=== PATIENT | female | born 1970 | race Caucasian/White ===

== ENCOUNTER 2016-03-06 06:39 | Emergency (ER) | payer OTHER ==
[~2016-03-06] VITALS: Ht 165.1 cm; Wt 113.4 kg
[2016-03-06] MEDS ORDERED: IV NORMAL SALINE 1000ML BAG 1,000 ML IV SCH (07:01)
[2016-03-06] MEDS ORDERED: KETOROLAC TROMETHAMINE 30 MG/ML SYRINGE. IV ONE (07:15)
[2016-03-06 07:20] LABS: BASO # 0.1 x10^3/uL (0.0-0.2); BASO % 1 % (0-3); EOS % 3 % (0-3); HEMATOCRIT 46.1 % (36.0-47.0); HEMOGLOBIN 14.6 g/dL (12.0-15.5); LYMPH # 3.6 x10^3/uL (1.0-4.8); LYMPH % 32 % (24-48); MEAN CORPUSCULAR HEMOGLOBIN 27 pg (25-35); MEAN CORPUSCULAR HGB CONC 32 g/dL (31-37); MEAN CORPUSCULAR VOLUME 86 fL (79-100); MONO % 7 % (0-9); NEUT % 57 % (31-73); PLATELET COUNT 335 x10^3/uL (140-400); RED BLOOD COUNT 5.37 x10^6/uL (3.50-5.40); RED CELL DISTRIBUTION WIDTH 14.3 % (11.5-14.5); WHITE BLOOD COUNT 11.1 x10^3/uL (4.0-11.0)
[2016-03-06 07:28] LABS: CREATININE 0.9 mg/dL (0.6-1.0); GFR 67.1
[2016-03-06 07:34] LABS: ALBUMIN 3.8 g/dL (3.4-5.0); TOTAL BILIRUBIN 0.3 mg/dL (0.2-1.0); TOTAL PROTEIN 7.8 g/dL (6.4-8.2)
--- NOTE | 2016-03-06 07:40 | PDOC ---
OBSERVATION CRITERIA FORMS Observation Criteria Form: GENERAL CRITERIA: OBSERVATION CARE USE THIS FORM ONLY WHEN INPATIENT ADMISSION CRITERIA ARE NOT MET. (Place X for any and all applicable criteria): Placement for observation care may be appropriate for a patient with ALL of the following(1)(2)(3))(4): []I. Observation care is appropriate as indicated by care requirements that are ALL of the following: []a) Beyond the scope of a usual outpatient care episode [A] []b) Expected to be short term [B] []c) Appropriate for observation care as indicated by ANY ONE of the following: []i) Diagnostic evaluation needed (eg, rule out MA) []ii) Acute treatment and response evaluation needed (eg, drug reaction) []iii) Monitoring for event (eg, arrhythmia) or recovery (eg, from drug ingestion) [X]II. Observation care is needed for ANY ONE of the following: []a) Significant adverse reaction to treatment or procedure []b) Abnormal finding (eg from lab. test, imaging study, physical exam) prompting significant concern(5)(6))(7) []c) Cardiovascular abnormalities (eg, hypertensive urgency, monitoring for cardiac injury)(7)(8)(9)(10))(11)(12) [X]d) Respiratory abnormalities (eg, dyspnea, bronchospasm, suspected aspiration)(11)(12)(15)(16) []e) Infectious processes (eg, hepatitis, observation for antibiotic response)(6)(17)(15)( 18)(19)(20) []f) Neurologic abnormalities (eg, unexplained abnormal mental status, multiple sclerosis exacerbation)(21) []g) Gastroenterologic problems (eg, pancreatitis; evaluation for suspected : ileus, obstruction, or appendicitis) []h) Obstetric issues (eg, active spontaneous ; suspected: ectopic , active labor, or significant antepartum complication) []i) Head and neck disease (eg, acute glaucoma, severe labyrinthitis) []j) Electrolyte or metabolic derangements (eg, sodium greater than 150 mEq /L (mmol/L)(18)(24) []k) Injuries (eg, snake bite, vehicular trauma(25)(26)(27)(28) []l) Control of severe vomiting or temperature abnormalities needed(29)(30) (31) []m) Severe pain requiring acute management []n) Behavioral health issues requiring further evaluation and disposition arrangement, including a patient who is ANY ONE of the following (34)(35)( 36)(37) []i) A danger to self (eg, self-mutilating or suicidal behavior) []ii) A danger to others (eg, assaultive or homicidal behavior) []iii) Incapacitated because of grave disability (eg, severe regression with inability to provide for self) []iv) Experiencing withdrawal or other drug-induced disorder []o) Monitoring or clinical intervention, including ANY ONE of the following [A] (11)(17): []i) Repetitive vital signs, neurologic signs, or vascular checks(6) (7)(8)(14)(15)(16)(30)(21)(23)(31)(38) []ii) Cardiac or respiratory monitoring(8)(9)(10)(13)(14)(15)(16) []iii) monitoring []iv) IV fluid replacement []v) IV medication or electrolyte infusions []vi) Respiratory therapy []vii) Rapid diagnostic testing (eg, observation pending laboratory or other testing results)(6)(9)(10)(23)(30)(31) []viii) Oxygen supplementation []ix) Other care requirements that exceed usual outpatient care []p) A child whose situation includes ANY ONE of the following (5)(6)(14)(15) (40)(41)(42)(31)(39)(43): []i) Clinical response to outpatient therapy uncertain []ii) Outpatient supervision by parents or caregivers uncertain []q) Monitoring needed after treatment []r) Temperature abnormalities requiring further evaluation []s) Poisoning The original [facility] content created by [employer] has been revised. The portions of the content which have been revised are identified through the use of italic text, and [facility] [employer] has neither reviewed nor approved the modified material. All other unmodified content is copyright [facility]. Please see references footnoted in the original [facility] edition 2016 [facility] completed for patient?: Yes LIBBY GOODMAN Mar 06, 2016 07:40
--- NOTE | 2016-03-06 07:56 | PHYS DOC ---
Past Medical History Past Medical History: Asthma Past Surgical History: Cholecystectomy Additional Past Surgical Histo: right breast lumpectomy Alcohol Use: None Drug Use: None Adult General Chief Complaint Chief Complaint: SHORTNESS OF BREATH [facility] HPI Patient is a 46 year old female who presents with complaint of cough and shortness of breath. Patient states her symptoms started suddenly this morning. Patient states that she awoke this morning with throat tightness and states that she lost her voice. Patient denies any fevers. Patient has history of asthma and Pelon's disease. The patient states that she used 3 treatments from her albuterol inhaler with improvement in her respiratory symptoms. Patient denies any chest pain, abdominal pain, or nausea. Patient has not had any recorded fevers at home. The patient states that she is still having slight shortness of breath and came to the emergency department for evaluation. Review of Systems Review of Systems Constitutional: Denies fever or chills [] Eyes: Denies change in visual acuity, redness, or eye pain [] HENT: Throat tightness, voice changes [] Respiratory: Cough, shortness of breath [] Cardiovascular: No additional information not addressed in HPI [] GI: Denies abdominal pain, nausea, vomiting, bloody stools or diarrhea [] : Denies dysuria or hematuria [] Musculoskeletal: Denies back pain or joint pain [] Integument: Denies rash or skin lesions [] Neurologic: Denies headache, focal weakness or sensory changes [] Endocrine: Denies polyuria or polydipsia [] Current Medications Current Medications Current Medications Medications (Trade) Dose Ordered Sig/Valentina Start Time Stop Time Status Last Admin Dose Admin Info (Do NOT chart on this entry -- for MONITORING) 1 each PRN DAILY PRN 03/06/16 08:45 03/08/16 08:44 Iohexol (Omnipaque 300 Mg/ml) 70 ml 1X ONCE 03/06/16 08:45 03/06/16 08:46 DC 03/06/16 08:46 70 ML Ketorolac Tromethamine (Toradol) 15 mg 1X ONCE 03/06/16 07:15 03/06/16 07:16 DC 03/06/16 08:12 15 MG Sodium Chloride (Iv Sodium Chloride 0.9% 1000ml Bag) 1,000 ml @ 1,000 mls/hr Q1H 03/06/16 07:01 03/06/16 08:00 DC 03/06/16 07:27 1,000 MLS/HR Allergies Allergies Allergies Coded Allergies Type Severity Reaction Last Updated Verified amoxicillin Allergy Intermediate 03/06/16 Yes cortisone Allergy Intermediate 03/06/16 Yes Physical Exam Physical Exam Constitutional: Alert, afebrile, appears in mild respiratory distress. [] HENT: Normocephalic, atraumatic, bilateral external ears normal, oropharynx moist, no oral exudates, nose normal. [] Eyes: PERRLA, EOMI, conjunctiva normal, no discharge. [] Neck: Normal range of motion, no tenderness, supple, no stridor. [] Cardiovascular: Tachycardia, normal rhythm, no murmur [] Lungs & Thorax: Bilateral breath sounds clear to auscultation [] Abdomen: Bowel sounds normal, soft, no tenderness, no masses, no pulsatile masses. [] Skin: Warm, dry, no erythema, no rash. [] Back: No tenderness, no CVA tenderness. [] Extremities: No tenderness, no cyanosis, no clubbing, ROM intact, no edema. [] Neurologic: Alert and oriented X 3, normal motor function, normal sensory function, no focal deficits noted. [] Current Patient Data Vital Signs Vital Signs Date Time Temp Pulse Resp B/P Pulse Ox O2 Delivery O2 Flow Rate FiO2 03/06/16 08:00 98 20 132/76 98 03/06/16 06:40 98.1 Room Air 98.1 Lab Values Laboratory Tests Test 03/06/16 06:54 03/06/16 07:25 03/06/16 08:09 White Blood Count 11.1x10^3/uL (4.0-11.0) H Red Blood Count 5.37x10^6/uL (3.50-5.40) Hemoglobin 14.6g/dL (12.0-15.5) Hematocrit 46.1% (36.0-47.0) Mean Corpuscular Volume 86fL (79-100) Mean Corpuscular Hemoglobin 27pg (25-35) Mean Corpuscular Hemoglobin Concent 32g/dL (31-37) Red Cell Distribution Width 14.3% (11.5-14.5) Platelet Count 335x10^3/uL (140-400) Neutrophils (%) (Auto) 57% (31-73) Lymphocytes (%) (Auto) 32% (24-48) Monocytes (%) (Auto) 7% (0-9) Eosinophils (%) (Auto) 3% (0-3) Basophils (%) (Auto) 1% (0-3) Neutrophils # (Auto) 6.3x10^3uL (1.8-7.7) Lymphocytes # (Auto) 3.6x10^3/uL (1.0-4.8) Monocytes # (Auto) 0.8x10^3/uL (0.0-1.1) Eosinophils # (Auto) 0.3x10^3/uL (0.0-0.7) Basophils # (Auto) 0.1x10^3/uL (0.0-0.2) Sodium Level 140mmol/L (136-145) Potassium Level 4.0mmol/L (3.5-5.1) Chloride Level 104mmol/L (98-107) Carbon Dioxide Level 24mmol/L (21-32) Anion Gap 12 (6-14) Blood Urea Nitrogen 22mg/dL (7-20) H Creatinine 0.9mg/dL (0.6-1.0) Estimated GFR (Cockcroft-Gault) 67.1 BUN/Creatinine Ratio 24 (6-20) H Glucose Level 117mg/dL (70-99) H Calcium Level 9.0mg/dL (8.5-10.1) Total Bilirubin 0.3mg/dL (0.2-1.0) Aspartate Amino Transferase (AST) 15U/L (15-37) Alanine Aminotransferase (ALT) 15U/L (14-59) Alkaline Phosphatase 107U/L (46-116) Total Protein 7.8g/dL (6.4-8.2) Albumin 3.8g/dL (3.4-5.0) Albumin/Globulin Ratio 1.0 (1.0-1.7) Influenza Type A Antigen Negative (NEGATIVE) Influenza Type B Antigen Negative (NEGATIVE) Urine Collection Type Unknown Urine Color Yellow Urine Clarity Clear Urine pH 5.5 Urine Specific Harriet 1.025 Urine Protein Negativemg/dL (NEG-TRACE) Urine Glucose (UA) Negativemg/dL (NEG) Urine Ketones (Stick) Negativemg/dL (NEG) Urine Blood Negative (NEG) Urine Nitrite Negative (NEG) Urine Bilirubin Negative (NEG) Urine Urobilinogen Dipstick 0.2mg/dL (0.2 mg/dL) Urine Leukocyte Esterase Small (NEG) Urine RBC Occ/HPF (0-2) Urine WBC 5-10/HPF (0-4) Urine Squamous Epithelial Cells Many/LPF Urine Bacteria Many/HPF (0-FEW) Urine Mucus Marked/LPF Urine Test Negative (NEG) Laboratory Tests 03/06/16 06:54 Laboratory Tests 03/06/16 06:54 EKG EKG Interpreted by me: Heart rate 103, sinus tachycardia, normal intervals, normal axis, no acute ST/T-wave abnormalities present Radiology/Procedures Radiology/Procedures [address] [id number] IMAGING REPORT Signed PATIENT: SAMMIE HERNANDEZ ACCOUNT: [id number] : 1970 LOCATION: ER AGE: 46 SEX: F EXAM STATUS: PRE ER ORD. PHYSICIAN: NATTY POON MD REASON: throat tightness, shortness of breath PROCEDURE: NECK SOFT TISSUE Neck soft tissue radiographs History: Throat tightness, shortness of breath. Symptoms began this morning. Comparison: None. Findings: AP and lateral views of the neck with attention to the soft tissues. No soft tissue gas collection is identified. On the lateral view, there is may be mild soft tissue swelling at C5 and C6 levels. There is straightening of the normal cervical lordosis. Impression: Question mild soft tissue swelling anterior to C5 and C6 levels. No convincing soft tissue gas collection is identified. DICTATED and SIGNED BY: SARAH FUNEZ MD DATE: 03/06/16 0759 CC: NATTY POON MD ~ [facility] [id number] [place] [address] IMAGING REPORT Signed PATIENT: SAMMIE HERNANDEZ ACCOUNT: [id number] : 1970 LOCATION: ER AGE: 46 SEX: F EXAM STATUS: PRE ER ORD. PHYSICIAN: NATTY POON MD REASON: throat tightness, shortness of breath PROCEDURE: CHEST PA & LATERAL EXAM: Chest, 2 views. HISTORY: Shortness of breath. COMPARISON: None. FINDINGS: Frontal and lateral views of the chest are obtained. There is no infiltrate, effusion or pneumothorax. The heart is normal in size. IMPRESSION: No acute pulmonary finding. DICTATED and SIGNED BY: SILVIANO WALKER MD DATE: 03/06/16 0756 CC: NATTY POON MD ~ [facility] [address] [place] [address] IMAGING REPORT Signed PATIENT: SAMMIE HERNANDEZ ACCOUNT: [id number] : 1970 LOCATION: ER AGE: 46 SEX: F EXAM STATUS: REG ER ORD. PHYSICIAN: NATTY POON MD REASON: possible prevertebral soft tissue swelling at C5-C6, eval for RPA/RPC PROCEDURE: SOFT TISSUE NECK W/CONTRAST CT neck with IV contrast History: Sore throat, possible soft tissue swelling. Comparison: None. Technique: Helical CT of the neck was performed after the administration of intravenous contrast, 75 mL Omnipaque 300. Axial, sagittal, and coronal reconstructions were obtained. One or more of the following individualized dose reduction techniques were utilized for the study: Automated exposure control Adjustment of mA and/or kV according to patient's size Use of iterative reconstruction technique. Findings: Major vessels of the neck enhance appropriately. Dominant right vertebral artery is seen. Variant vascular anatomy is seen with the left vertebral artery arising directly from the aortic arch. Thyroid is symmetric. No neck lymphadenopathy is identified. No soft tissue mass or focal fluid collection to suggest abscess is identified. Bilateral parotid glands appear symmetric. Airway is patent. Parapharyngeal fat appears preserved. No significant soft tissue abnormality is seen in the prevertebral space. No radiographic abnormality is thought to represent normal soft tissue shadows. There is mild reversal of normal cervical lordosis. Multilevel degenerative changes are seen in spine. Impression: No acute abnormality identified in the neck. DICTATED and SIGNED BY: SARAH FUNEZ MD DATE: 03/06/16 0902 CC: NATTY POON MD; NON,STAFF ~ [] Course & Med Decision Making Course & Med Decision Making Pertinent Labs and Imaging studies reviewed. (See chart for details) The patient stated that she was unable to take IV or oral steroids. The patient was given IV Toradol and IV fluids with improvement in symptoms. The patient's CT scan did not show any evidence of retropharyngeal abscess or cellulitis. The patient's symptoms are consistent with viral upper respiratory illness. Recommended that the patient continue on home albuterol and recommended use of naproxen to help with inflammation, warm fluids or sore throat, and use of humidifier at nighttime to help with breathing and congestion. Recommended close follow-up with primary doctor in the next 2 days and return to emergency department for any worsening symptoms. Patient voiced understanding and in agreement with treatment plan. Dragon Disclaimer Dragon Disclaimer This electronic medical record was generated, in whole or in part, using a voice recognition dictation system. Departure Departure Impression: Primary Impression: Laryngitis Additional Impression: Upper respiratory infection Disposition: 01 HOME, SELF-CARE Condition: IMPROVED Patient Instructions: Laryngitis, Upper Respiratory Infection, Adult Additional Instructions: Follow-up with your primary doctor in 2 days. Use [id number] strength naproxen 1 tablet twice a day to help with inflammation. Continue use of your home albuterol and Pulmicort. Is recommended to drink warm fluids, use warm moist air during the day and a humidifier at nighttime to help with upper airway congestion and improved breathing. Return to the emergency department for any worsening symptoms. Problem Qualifiers Additional Impression: Upper respiratory infection URI type: unspecified viral URI Qualified Code: J06.9 - Acute upper respiratory infection, unspecified NATTY POON MD Mar 06, 2016 07:56
--- NOTE | 2016-03-06 07:59 | RAD ---
EXAM: Chest, 2 views. HISTORY: Shortness of breath. COMPARISON: None. FINDINGS: Frontal and lateral views of the chest are obtained. There is no infiltrate, effusion or pneumothorax. The heart is normal in size. IMPRESSION: No acute pulmonary finding.
--- NOTE | 2016-03-06 08:03 | RAD ---
Neck soft tissue radiographs History: Throat tightness, shortness of breath. Symptoms began this morning. Comparison: None. Findings: AP and lateral views of the neck with attention to the soft tissues. No soft tissue gas collection is identified. On the lateral view, there is may be mild soft tissue swelling at C5 and C6 levels. There is straightening of the normal cervical lordosis. Impression: Question mild soft tissue swelling anterior to C5 and C6 levels. No convincing soft tissue gas collection is identified.
[2016-03-06 08:05] LABS: OBC FLU VALID
[2016-03-06 08:31] LABS: NEG OBC UR NEG; POS OBC UR POS
[2016-03-06 08:35] LABS: BILIRUBIN,URINE NEGATIVE (NEG); GLUCOSE,URINE NEGATIVE (NEG); NITRITE,URINE NEGATIVE (NEG); PH,URINE 5.5; PROTEIN,URINE NEGATIVE (NEG-TRACE); UROBILINOGEN,URINE 0.2 mg/dL (0.2 mg/dL)
[2016-03-06] MEDS ORDERED: CONTRAST GIVEN MC PRN (08:45)
[2016-03-06] MEDS ORDERED: IOHEXOL 300 MG/ML 100ML VIAL. IV ONE (08:45)
[2016-03-06 08:48] LABS: BACTERIA,URINE MANY /HPF (0-FEW); SQUAMOUS EPITHELIAL CELL,UR MANY /LPF
[2016-03-06 08:52] LABS: RBC,URINE OCC /HPF (0-2)
--- NOTE | 2016-03-06 09:10 | RAD ---
CT neck with IV contrast History: Sore throat, possible soft tissue swelling. Comparison: None. Technique: Helical CT of the neck was performed after the administration of intravenous contrast, 75 mL Omnipaque 300. Axial, sagittal, and coronal reconstructions were obtained. One or more of the following individualized dose reduction techniques were utilized for the study: Automated exposure control Adjustment of mA and/or kV according to patient's size Use of iterative reconstruction technique. Findings: Major vessels of the neck enhance appropriately. Dominant right vertebral artery is seen. Variant vascular anatomy is seen with the left vertebral artery arising directly from the aortic arch. Thyroid is symmetric. No neck lymphadenopathy is identified. No soft tissue mass or focal fluid collection to suggest abscess is identified. Bilateral parotid glands appear symmetric. Airway is patent. Parapharyngeal fat appears preserved. No significant soft tissue abnormality is seen in the prevertebral space. No radiographic abnormality is thought to represent normal soft tissue shadows. There is mild reversal of normal cervical lordosis. Multilevel degenerative changes are seen in spine. Impression: No acute abnormality identified in the neck.
--- NOTE | 2016-03-06 09:56 | EKG ---
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
[2016-03-06 09:59] VITALS: BP 139/86
== END 2016-03-06 09:50 | disposition home or self-care (01) ==
LOC: ER 06:39
DX: J04.0 Acute laryngitis (principal); J06.9 Acute upper respiratory infection, unspecified; Z88.0 Allergy status to penicillin; Z88.6 Allergy status to analgesic agent; J45.909 Unspecified asthma, uncomplicated; Z90.710 Acquired absence of both cervix and uterus; Z90.11 Acquired absence of right breast and nipple
CPT/HCPCS: 36415; 70360; 70491; 71020; 80053; 81001; 81025; 85027; 87086; 87804; 93005; 96361; 96374; 99285; J1885; J7030; Q9967